=== PATIENT | female | born 1970 | race Caucasian/White ===

== ENCOUNTER 2018-07-10 09:27 | Day surgery (SDC) | payer BC ==
[~2018-07-10 09:27] MED LIST: CEFAZOLIN 1 GM INJ; DEXAMETHASONE 4 MG/ML 1 ML INJ; LIDOCAINE 2% (SDV) 5 ML INJ; METOCLOPRAMIDE 10 MG INJ
[2018-07-10] MEDS ORDERED: FENTAnyl 50 MCG/ML VIAL (09:44)
[2018-07-10] MEDS ORDERED: MIDAZOLAM 1 MG/ML 2 ML INJ (09:44)
[2018-07-10] MEDS ORDERED: PROPOFOL 20 ML (09:44)
[2018-07-10] MEDS ORDERED: ONDANSETRON 4 MG INJ (09:45)
[2018-07-10 10:49] LABS: ADD MAN DIFF? NO
[2018-07-10 10:54] LABS: WHITE BLOOD COUNT 4.9 10^3/ul (4.8-10.8)
[2018-07-10 10:54] LABS: BASOPHILS % 0.8 % (0.0-2.0); EOSINOPHILS # 0.1 10^3/ul (0.0-0.5); EOSINOPHILS % 1.2 % (0.0-7.0); HEMATOCRIT 42.3 % (37.0-47.0); HEMOGLOBIN 14.1 g/dl (12.0-16.0); LYMPHOCYTES # 1.5 10^3/ul (0.8-2.9); LYMPHOCYTES % 31.8 % (15.0-51.0); MEAN CORPUSCULAR HEMOGLOBIN 30.2 pg (29.0-33.0); MEAN CORPUSCULAR HGB CONC 33.3 g/dl (32.0-37.0); MEAN CORPUSCULAR VOLUME 90.6 fl (82.0-101.0); MEAN PLATELET VOLUME 9.7 fl (7.4-10.4); MONOCYTE # 0.5 10^3/ul (0.3-0.9); MONOCYTES % 10.9 % (0.0-11.0); NEUTROPHIL # 2.7 10^3/ul (1.6-7.5); NEUTROPHILS % 55.1 % (39.0-77.0); PLATELET COUNT 246 10^3/UL (140-415); RED BLOOD COUNT 4.67 10^6/ul (4.20-5.40); RED CELL DISTRIBUTION WIDTH 11.9 % (11.5-14.5)
[2018-07-10] MEDS ORDERED: FENTAnyl 50 MCG/ML VIAL IV (12:00)
[2018-07-10] MEDS ORDERED: MEPERIDINE 25 MG INJ IV (12:00)
[2018-07-10] MEDS ORDERED: ONDANSETRON 4 MG INJ IV (12:00)
[2018-07-10] MEDS ORDERED: DIPHENHYDRAMINE 50 MG INJ IV (12:00)
[2018-07-10] MEDS ORDERED: HYDROmorphONE 1 MG/5 ML IV SYRINGE IV ×3 (12:00)
[2018-07-10] MEDS: FERRIC SUBSULFATE 8 GM VIAL TOP (13:42)
[2018-07-10] MEDS: LIDOCAINE 1%/EPI 30 ML INJ (13:42)
[2018-07-10] MEDS: FENTAnyl 50 MCG/ML VIAL IV (14:33)
== END 2018-07-10 16:45 | disposition home or self-care (01) ==
LOC: SDS 09:27
DX: N87.9 Dysplasia of cervix uteri, unspecified (principal)
CPT/HCPCS: 57522; 84703; 85025; 86850; 86900; 86901; 88305; 93005